=== PATIENT | female | born 2005 | race Caucasian/White ===

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

== ENCOUNTER → 2025-01-19 | Outpatient (REF) | payer OTHER | LOC: M PLALAB 16:03 | PROVIDERS: ATTEND Obstetrics & Gynecology | DX: Z36.85 Encounter for antenatal screening for Streptococcus B (principal); Z3A.36 36 weeks gestation of pregnancy ==

== ENCOUNTER 2025-02-09 09:05 | Outpatient (CLI) | payer OTHER ==
[~2025-02-09] VITALS: Ht 160 cm; Wt 83.9 kg
[2025-02-09 09:28] VITALS: BP 114/75
[2025-02-09] MEDS ORDERED: HOME MED LIST COMPLETE! XX SCH (09:30)
== END 2025-02-09 10:00 | disposition home or self-care (01) ==
LOC: M LDO 09:05
PROVIDERS: ATTEND Student in an Organized Health Care Education/Training Program
DX: O26.893 Other specified pregnancy related conditions, third trimester (principal); N89.8 Other specified noninflammatory disorders of vagina; Z3A.39 39 weeks gestation of pregnancy
CPT/HCPCS: 59025; G0463